=== PATIENT | female | born 1945 | race Asian ===

== ENCOUNTER 2016-10-21 08:40 | Day surgery (SDC) | payer OTHER ==
[2016-10-21] VITALS (14 sets, daily range): BP systolic 109–178; BP diastolic 26–77; PULSE 55–78; RESP 16–26; Ht 154.9 cm; Wt 60.7 kg
[~2016-10-21] VITALS: Ht 154.9 cm; Wt 60.7 kg
[2016-10-21] MEDS ORDERED: LISI20TA11 PO (09:24)
[2016-10-21] MEDS ORDERED: ASPI81TA3 PO (09:24)
[2016-10-21] MEDS ORDERED: ATEN-51 PO (09:25)
[2016-10-21] MEDS ORDERED: SIMV20TA PO (09:26)
[2016-10-21] MEDS ORDERED: AMLO5TAB4 PO (09:28)
[2016-10-21] MEDS ORDERED: METF500T4 PO (09:30)
[2016-10-21 10:04] LABS: ADD SCAN DIFF NO
[2016-10-21 10:09] LABS: BASOPHILS % 0.4 % (0.0-2.0); EOSINOPHILS # 0.2 10^3/ul (0.0-0.5); EOSINOPHILS % 2.2 % (0.0-7.0); HEMATOCRIT 40.3 % (37.0-47.0); HEMOGLOBIN 13.2 g/dl (12.0-16.0); LYMPHOCYTES # 2.4 10^3/ul (0.8-2.9); LYMPHOCYTES % 31.5 % (15.0-51.0); MEAN CORPUSCULAR HGB CONC 32.8 g/dl (32.0-37.0); MEAN CORPUSCULAR VOLUME 91.6 fl (82.0-101.0); MEAN PLATELET VOLUME 9.9 fl (7.4-10.4); MONOCYTE # 0.5 10^3/ul (0.3-0.9); MONOCYTES % 6.3 % (0.0-11.0); NEUTROPHIL # 4.5 10^3/ul (1.6-7.5); NEUTROPHILS % 59.3 % (39.0-77.0); PLATELET COUNT 286 10^3/UL (140-415); RED CELL DISTRIBUTION WIDTH 12.6 % (11.5-14.5); WHITE BLOOD COUNT 7.6 10^3/ul (4.8-10.8)
[2016-10-21 10:11] LABS: INR 0.87; PROTIME 11.8 Sec (12.2-14.2); PT RATIO 0.9
[2016-10-21 10:13] LABS: POTASSIUM 4.5 mmol/L (3.5-5.1)
[2016-10-21 10:23] LABS: CALCIUM 10.1 mg/dl (8.4-10.2); CREATININE 0.72 mg/dl (0.44-1.00)
[2016-10-21] MEDS ORDERED: hydrALAzine 20 MG INJ IV ONE (11:00)
[2016-10-21] MEDS ORDERED: LIDOCAINE 1% (MDV) 20 ML INJ ONE (11:53)
[2016-10-21] MEDS ORDERED: hydrALAzine 20 MG INJ ONE (11:54)
[2016-10-21] MEDS ORDERED: FENTAnyl 50 MCG/ML VIAL ONE (11:54)
[2016-10-21] MEDS ORDERED: IODIXANOL LOCM 100 ML BTL ONE ×2 (11:54→11:55)
[2016-10-21] MEDS ORDERED: MIDAZOLAM 1 MG/ML 2 ML INJ ONE (11:54)
--- NOTE | 2016-11-12 13:43 | CARRPT ---
DATE OF PROCEDURE: 10/21/2016 PROCEDURE PERFORMED: 1. Right heart catheterization. 2. Aortography. 3. Right femoral arteriography. SURGEON: Jeff Smith MD INDICATION: Positive stress test. DESCRIPTION OF PROCEDURE: Following informed consent, the patient was brought to the cardiac cathet erization lab, where the right groin was prepped in a normal sterile fashion. Then, 10 mL of 1% Xyl ocaine was infiltrated to the right groin and using modified Seldinger technique, the right femoral artery was punctured using a needle. Following this, a 6-[place] catheter was inserted in the right femoral artery. Following this, a JL4 catheter was advanced over the wire to the aortic root and cannulation of the left main was attempted, but was unsuccessful. Using the same catheter, the right coronary artery w as cannulated and right coronary angiography was performed. The right coronary artery was a huge ca liber vessel, which wrapped around the apex of heart to the left side of the heart with multiple bra nches. There was no left main to be cannulated, which was confirmed by aortography. ASSESSMENT: 1. 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 2. Right coronary artery was a huge caliber vessel, which wrapped around the apex of the heart all the way to the base of the heart with multiple branches, which is the only coronary artery supplying the whole heart. 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 Recommend medical management. Dictated By: JEFF SMITH MD SR/NTS Conf#: [id number] DID#: [id number]
== END 2016-10-21 17:02 | disposition home or self-care (01) ==
LOC: SDS 08:40
PROVIDERS: ATTEND Internal Medicine Cardiovascular Disease
DX: R94.39 Abnormal result of other cardiovascular function study (principal); I10 Essential (primary) hypertension; E78.5 Hyperlipidemia, unspecified; E11.9 Type 2 diabetes mellitus without complications
CPT/HCPCS: 80048; 82962; 85025; 85610; 85730; 93458; C1760; C1769; C1887; C1894; J0360; J1644; J2250; J3010; Q9967; Z7610

== ENCOUNTER 2016-12-21 07:03 | Day surgery (SDC) | payer OTHER ==
[~2016-12-21] VITALS: Ht 154.9 cm; Wt 59.9 kg
[~2016-12-21 07:03] MED LIST: AMLO5TAB4 PO; ASPI81TA3 PO; ATEN-51 PO; LISI20TA11 PO; METF500T4 PO; SIMV20TA PO
[2016-12-21 07:35] VITALS: Ht 154.9 cm; Wt 59.9 kg
[2016-12-21] MEDS ORDERED: MIDAZOLAM 1 MG/ML 2 ML INJ ONE (08:52)
[2016-12-21] MEDS ORDERED: FENTAnyl 50 MCG/ML VIAL ONE (08:52)
[2016-12-21 09:06] VITALS: BP 160/60; RESP 16
--- NOTE | 2016-12-29 08:42 | OPR ---
DATE OF OPERATION: 12/21/2016 OPERATIVE PROCEDURE: Colonoscopy. PREOPERATIVE DIAGNOSIS: Screening colonoscopy. Rule out colon polyps. POSTOPERATIVE DIAGNOSIS: Minimal extremities. The rest of the colon appeared normal. No polyps. OPERATIVE PROCEDURE: After the informed written consent was obtained, the patient was asked to lay on the left lateral side. Versed 2 mg, 75 mcg of fentanyl were given as intravenous anesthesia. When the patient became somnolent, Olympus video colonoscope was introduced into the rectum. The scope was advanced all the way to the cecum. The entire colon appeared perfectly normal with no mucosal abnormality. The scope at this time was withdrawn. On the way out, further careful evaluation was carried out. Retroflexion was performed. No internal hemorrhoids were noted. When the scope was withdrawn, minimal external hemorrhoids were noted. The procedure was terminated. PLAN: Recommend high-fiber diet. Repeat colonoscopy in one year as needed. Dictated By: Ayaan Hernandez MD /[email or web address] /Document#: [id number]
== END 2016-12-21 15:44 | disposition home or self-care (01) ==
LOC: GIL 07:03
PROVIDERS: ATTEND Internal Medicine Gastroenterology
DX: Z12.11 Encounter for screening for malignant neoplasm of colon (principal); I10 Essential (primary) hypertension
CPT/HCPCS: 45378; J2250; J3010